=== PATIENT | female | born 1990 | race Caucasian/White ===

== ENCOUNTER 2016-12-26 10:13 | Day surgery (SDC) | payer OTHER ==
[2016-12-26] MEDS ORDERED: Sodium Chloride 0.9% 10 ML Syringe FLUSH PRN (10:20)
[2016-12-26] MEDS ORDERED: Lactated Ringers 1,000 ML IV SCH (10:30)
[2016-12-26] MEDS ORDERED: HYDROmorphone 0.5 MG/0.5 ML Syringe IVPUSH ONE (10:30)
--- NOTE | 2016-12-26 10:34 | EDM.PDOC ---
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 Something went behind the horse and spooked the horse she got bucked off. She landed on her left leg. She has an open, left tib/fib fracture. She has no other injuries. She did not hit her head or hurt her neck. She has no chest pain or shortness of breath. She has no abdominal pain nausea or vomiting. She ate a breakfast bar early this morning. She has no medical problems. She came by [facility] and a trauma alert was called. She had an IV and she was given fentanyl 100mcg IV. 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 [No Known Home Meds] 12/26/16 [History] Social & Family History - Alcohol Use Days Per Week of Alcohol Use: 0 - Recreational Drug Use Recreational Drug Use: No - Living Situation & Occupation Living situation: Reports: Other, Single Review of Systems - Review of Systems Review Of Systems: See Below Constitutional: Reports: No Symptoms Eyes: Reports: No Symptoms Ears: Reports: No Symptoms Nose: Reports: No Symptoms Mouth/Throat: Reports: No Symptoms Respiratory: Reports: No Symptoms Cardiovascular: Reports: No Symptoms GI/Abdominal: Reports: No Symptoms Genitourinary: Reports: No Symptoms Musculoskeletal: Reports: Other (Left open tib/fib fracture) ED EXAM, TRAUMA (MAJOR/MULTI) - Physical Exam Exam: See Below Exam Limited By: No Limitations General Appearance: Alert, No Apparent Distress Head: Atraumatic, Normocephalic Ears: Normal External Exam Nose: Normal Inspection Neck: Non-Tender, Normal Alignment, Normal Inspection Cardiovascular: Regular Rate, Rhythm, No Edema, No Murmur Respiratory/Chest: No Respiratory Distress, Lungs Clear, Normal Breath Sounds GI/Abdominal: Soft, Non-Tender, No Organomegaly, No Mass Extremities: Other (Obvious open fracture of the left Tib/fib with angulation laterally. 3cm laceration over the fracture site with the tibia at the opening. Good sensation and pulses distally.) Neurologic: No Motor/Sensory Deficits, Alert, Oriented x 3 Course - Vital Signs Last Recorded V/S: Last Vital Signs Temp 97.2 F 12/26/16 10:20 Pulse 106 H 12/26/16 10:20 Resp 16 12/26/16 10:20 BP 111/74 12/26/16 10:20 Pulse Ox 100 12/26/16 10:20 - Orders/Labs/Meds Orders: Active Orders 24 hr Category Date Time Status Cardiac Monitoring [RC] . DIRECTED Care 12/26/16 10:20 Active Peripheral IV Care [RC] . DIRECTED Care 12/26/16 10:20 Active Lactated Ringers [Ringers, Lactated] 1,000 ml Med 12/26/16 10:30 Active IV ASDIRECTED Sodium Chloride 0.9% [Saline Flush] Med 12/26/16 10:20 Active 10 ml FLUSH ASDIRECTED PRN ceFAZolin [Ancef] 2 gm Med 12/26/16 10:36 Active Premix Bag 1 bag IV ONETIME Peripheral IV Insertion Adult [OM.PC] Stat Oth 12/26/16 10:20 Ordered Medication Orders Lactated Ringer's (Ringers, Lactated) 1,000 mls @ 125 mls/hr IV ASDIRECTED PRAMOD Last Admin: 12/26/16 10:28 Dose: 125 mls/hr Cefazolin Sodium/Dextrose 2 gm (/ Premix) 50 mls @ 100 mls/hr IV ONETIME ONE Stop: 12/26/16 11:05 Last Admin: 12/26/16 10:53 Dose: 100 mls/hr Sodium Chloride (Saline Flush) 10 ml FLUSH ASDIRECTED PRN PRN Reason: Keep Vein Open Last Admin: 12/26/16 10:28 Dose: 10 ml Labs: Laboratory Tests 12/26/16 12/26/16 12/26/16 Range/Units 10:20 10:20 10:20 WBC 9.84 (3.98-10.04) K/mm3 RBC 4.53 (3.98-5.22) M/mm3 Hgb 13.6 (11.2-15.7) gm/L Hct 40.1 (34.1-44.9) % MCV 88.5 (79.4-94.8) fl MCH 30.0 (25.6-32.2) pg MCHC 33.9 (32.2-35.5) g/dl RDW Std Deviation 41.8 (36.4-46.3) fL Plt Count 290 (182-369) K/mm3 MPV 10.5 (9.4-12.3) fl Neut % (Auto) 61.8 (34.0-71.1) % Lymph % (Auto) 26.1 (19.3-51.7) % [place] % (Auto) 7.9 (4.7-12.5) % Eos % (Auto) 3.2 (0.7-5.8) Baso % (Auto) 0.7 (0.1-1.2) % Neut # (Auto) 6.08 (1.56-6.13) K/mm3 Lymph # (Auto) 2.57 (1.18-3.74) K/mm3 [place] # (Auto) 0.78 H (0.24-0.36) K/mm3 Eos # (Auto) 0.31 (0.04-0.36) K/mm3 Baso # (Auto) 0.07 (0.01-0.08) K/mm3 Sodium 139 (136-145) mEq/L Potassium 3.0 L (3.5-5.1) mEq/L Chloride 106 (98-107) mEq/L Carbon Dioxide 18 L (21-32) mEq/L Anion Gap 18.0 H (5-15) BUN 9 (7-18) mg/dL Creatinine 1.0 (0.55-1.02) mg/dL Est Cr Clr Drug Dosing 68.61 mL/min Estimated GFR (MDRD) > 60 (>60) mL/min BUN/Creatinine Ratio 9.0 L (14-18) Glucose 120 H (74-106) mg/dL Calcium 8.8 (8.5-10.1) mg/dL Total Bilirubin 1.1 H (0.2-1.0) mg/dL AST 12 L (15-37) U/L ALT 16 (14-59) U/L Alkaline Phosphatase 62 (46-116) U/L Total Protein 7.5 (6.4-8.2) g/dl Albumin 4.0 (3.4-5.0) g/dl Globulin 3.5 gm/dL Albumin/Globulin Ratio 1.1 (1-2) Lipase 118 (73-393) U/L HCG, Qual Negative (NEGATIVE) Meds: Medications Generic Name Dose Route Start Last Admin Trade Name Freq PRN Reason Stop Dose Admin Lactated Ringer's 1,000 mls @ 125 mls/hr 12/26/16 10:30 12/26/16 10:28 Ringers, Lactated IV 125 mls/hr ASDIRECTED PRAMOD Administration Cefazolin Sodium/Dextrose 2 gm 50 mls @ 100 mls/hr 12/26/16 10:36 12/26/16 10 :53 / Premix IV 12/26/16 11:05 100 mls/hr ONETIME ONE Administration Sodium Chloride 10 ml 12/26/16 10:20 12/26/16 10:28 Saline Flush FLUSH 10 ml ASDIRECTED PRN Administration Keep Vein Open Discontinued Medications Generic Name Dose Route Start Last Admin Trade Name Freq PRN Reason Stop Dose Admin Hydromorphone HCl 0.5 mg 12/26/16 10:30 12/26/16 10:33 Dilaudid IVPUSH 12/26/16 10:31 0.5 mg ONETIME ONE Administration - Re-Assessments/Exams Free Text/Narrative Re-Assessment/Exam: 12/26/16 11:04 I ordered an IV of LR, x-ray and labs. The x-ray confirms the fracture. Her CBC looks good. Her K was low at 3 and her anion gap is elevated at 18. Her glucose is elevated at 120. Her HCG is negative. 12/26/16 11:07 I ordered some K through the IV. I called Dr Erazo and he will come see the patient and take her to the OR. Her tetanus is up to date and I ordered ancef 2 grams IV. 12/26/16 11:09 I did give her a dose of dilaudid 0.5mg IV for the pain. Departure - Departure Time of Disposition: 11:10 Disposition: Refer to Observation Condition: fair Clinical Impression: Animal-rider injured by fall from or being thrown from horse in noncollision accident, initial encounter Fall Qualifiers: Encounter type: initial encounter Qualified Code(s): W19.XXXA - Unspecified fall, initial encounter Tibia/fibula fracture, shaft Qualifiers: Encounter type: initial encounter Fracture type: open Open fracture type: open type I or II Laterality: left Qualified Code(s): S82.202B - Unspecified fracture of shaft of left tibia, initial encounter for open fracture type I or II; S82.402B - Unspecified fracture of shaft of left fibula, initial encounter for open fracture type I or II - Discharge Information Forms: ED Department Discharge - My Orders Last 24 Hours: My Active Orders 12/26/16 10:20 Cardiac Monitoring [RC] . DIRECTED Peripheral IV Care [RC] . DIRECTED Sodium Chloride 0.9% [Saline Flush] 10 ml FLUSH ASDIRECTED PRN Peripheral IV Insertion Adult [OM.PC] Stat 12/26/16 10:30 Lactated Ringers [Ringers, Lactated] 1,000 ml IV ASDIRECTED 12/26/16 10:36 ceFAZolin [Ancef] 2 gm Premix Bag 1 bag IV ONETIME - Assessment/Plan Last 24 Hours: My Active Orders 12/26/16 10:20 Cardiac Monitoring [RC] . DIRECTED Peripheral IV Care [RC] . DIRECTED Sodium Chloride 0.9% [Saline Flush] 10 ml FLUSH ASDIRECTED PRN Peripheral IV Insertion Adult [OM.PC] Stat 12/26/16 10:30 Lactated Ringers [Ringers, Lactated] 1,000 ml IV ASDIRECTED 12/26/16 10:36 ceFAZolin [Ancef] 2 gm Premix Bag 1 bag IV ONETIME
[2016-12-26] MEDS ORDERED: ceFAZolin 2 GM in Premix Bag 1 BAG IV ONE (10:36)
--- NOTE | 2016-12-26 10:43 | CR ---
Left tibia and fibula: AP and lateral views of the left tibia and fibula were obtained. Displaced and angulated fractures noted near the junction of the mid and distal one third diaphysis of the tibia and fibula. Soft tissue injury is seen. Soft tissue swelling also noted. No proximal abnormality is seen. Impression: 1. Displaced and angulated fractures within the mid to distal tibia/fibula. 2. Soft tissue injury/swelling. Diagnostic code #5
[2016-12-26] MEDS: Potassium Chloride 10 MEQ in Premix Bag 1 BAG IV SCH ×2 (11:30→20:27)
[2016-12-26] MEDS ORDERED: Propofol 200 MG/20 ML SDV ONE (11:43)
[2016-12-26] MEDS ORDERED: Midazolam 1 MG/ML 2 ML SDV ONE (11:43)
[2016-12-26] MEDS ORDERED: fentaNYL 250 MCG/5 ML SDV ONE (11:43)
[2016-12-26] MEDS ORDERED: Lidocaine 1% 4 ML ONE (11:44)
--- NOTE | 2016-12-26 11:44 | PCM.PREANE ---
Preanesthetic Assessment - Anesthesia/Transfusion/Family Hx Anesthesia History: Prior Anesthesia Without Reaction Family History of Anesthesia Reaction: No Transfusion History: No Prior Transfusion(s) Intubation History: Unknown - Review of Systems General: Other (recovering from a cold ) Pulmonary: No Symptoms Cardiovascular: No Symptoms Gastrointestinal: No symptoms Neurological: Headache (received chiropractic treatments to treat PEÑALOZA's ) Other: Reports: None - Physical Assessment NPO Status Date: 12/26/16 NPO Status Time: 07:40 O2 Sat by Pulse Oximetry: 100 Respiratory Rate: 16 Vital Signs: Last Vital Signs Temp 36.2 C 12/26/16 10:20 Pulse 97 12/26/16 11:32 Resp 16 12/26/16 11:32 BP 114/72 12/26/16 11:32 Pulse Ox 100 12/26/16 11:32 Height: 1.57 m Weight: 65.771 kg ASA Class: 1E Mental Status: Alert & Oriented x3 Airway Class: Mallampati = 1 Dentition: Reports: Normal Dentition Thyro-Mental Finger Breadths: 3 Mouth Opening Finger Breadths: 5 ROM/Head Extension: Full Lungs: Clear to auscultation, Normal respiratory effort Cardiovascular: Regular Rate, Regular Rhythm, No Murmurs - Lab Values: Laboratory Last Values WBC 9.84 K/mm3 (3.98-10.04) 12/26/16 10:20 RBC 4.53 M/mm3 (3.98-5.22) 12/26/16 10:20 Hgb 13.6 gm/L (11.2-15.7) 12/26/16 10:20 Hct 40.1 % (34.1-44.9) 12/26/16 10:20 MCV 88.5 fl (79.4-94.8) 12/26/16 10:20 MCH 30.0 pg (25.6-32.2) 12/26/16 10:20 MCHC 33.9 g/dl (32.2-35.5) 12/26/16 10:20 RDW Std Deviation 41.8 fL (36.4-46.3) 12/26/16 10:20 Plt Count 290 K/mm3 (182-369) 12/26/16 10:20 MPV 10.5 fl (9.4-12.3) 12/26/16 10:20 Neut % (Auto) 61.8 % (34.0-71.1) 12/26/16 10:20 Lymph % (Auto) 26.1 % (19.3-51.7) 12/26/16 10:20 [place] % (Auto) 7.9 % (4.7-12.5) 12/26/16 10:20 Eos % (Auto) 3.2 (0.7-5.8) 12/26/16 10:20 Baso % (Auto) 0.7 % (0.1-1.2) 12/26/16 10:20 Neut # (Auto) 6.08 K/mm3 (1.56-6.13) 12/26/16 10:20 Lymph # (Auto) 2.57 K/mm3 (1.18-3.74) 12/26/16 10:20 [place] # (Auto) 0.78 K/mm3 (0.24-0.36) H 12/26/16 10:20 Eos # (Auto) 0.31 K/mm3 (0.04-0.36) 12/26/16 10:20 Baso # (Auto) 0.07 K/mm3 (0.01-0.08) 12/26/16 10:20 Sodium 139 mEq/L (136-145) 12/26/16 10:20 Potassium 3.0 mEq/L (3.5-5.1) L 12/26/16 10:20 Chloride 106 mEq/L (98-107) 12/26/16 10:20 Carbon Dioxide 18 mEq/L (21-32) L 12/26/16 10:20 Anion Gap 18.0 (5-15) H 12/26/16 10:20 BUN 9 mg/dL (7-18) 12/26/16 10:20 Creatinine 1.0 mg/dL (0.55-1.02) 12/26/16 10:20 Est Cr Clr Drug Dosing 68.61 mL/min 12/26/16 10:20 Estimated GFR (MDRD) > 60 mL/min (>60) 12/26/16 10:20 BUN/Creatinine Ratio 9.0 (14-18) L 12/26/16 10:20 Glucose 120 mg/dL (74-106) H 12/26/16 10:20 Calcium 8.8 mg/dL (8.5-10.1) 12/26/16 10:20 Total Bilirubin 1.1 mg/dL (0.2-1.0) H 12/26/16 10:20 AST 12 U/L (15-37) L 12/26/16 10:20 ALT 16 U/L (14-59) 12/26/16 10:20 Alkaline Phosphatase 62 U/L (46-116) 12/26/16 10:20 Total Protein 7.5 g/dl (6.4-8.2) 12/26/16 10:20 Albumin 4.0 g/dl (3.4-5.0) 12/26/16 10:20 Globulin 3.5 gm/dL 12/26/16 10:20 Albumin/Globulin Ratio 1.1 (1-2) 12/26/16 10:20 Lipase 118 U/L (73-393) 12/26/16 10:20 HCG, Qual Negative (NEGATIVE) 12/26/16 10:20 - Allergies Allergies/Adverse Reactions: Allergies Allergy/AdvReac Type Severity Reaction Status Date / Time amoxicillin [Amoxicillin] Allergy Cannot Verified 12/26/16 10:39 Remember - Blood Blood Available: No - Acknowledgements Anesthesia Type Planned: General Anesthesia Pt an Appropriate Candidate for the Planned Anesthesia: Yes Alternatives and Risks of Anesthesia Discussed w Pt/Guardian: Yes Pt/Guardian Understands and Agrees with Anesthesia Plan: Yes PreAnesthesia Questionnaire HEENT History: Reports: None Cardiovascular History: Reports: None Respiratory History: Reports: None Gastrointestinal History: Reports: None Genitourinary History: Reports: None 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 Musculoskeletal History: Reports: None Neurological History: Reports: None Psychiatric History: Reports: None Endocrine/Metabolic History: Reports: None Hematologic History: Reports: None Immunologic History: Reports: None Oncologic (Cancer) History: Reports: None Dermatologic History: Reports: None - Infectious Disease History Infectious Disease History: Reports: None - Past Surgical History GI Surgical History: Reports: Appendectomy - SUBSTANCE USE Smoking Status *Q: Never Smoker Second Hand Smoke Exposure: No Days Per Week of Alcohol Use: 0 Recreational Drug Use History: No - HOME MEDS Home Medications: Home Meds . [No Known Home Meds] 12/26/16 [History] - CURRENT (IN HOUSE) MEDS Current Meds: Current Medications Lactated Ringer's (Ringers, Lactated) 1,000 mls @ 125 mls/hr IV ASDIRECTED PRAMOD Last Admin: 12/26/16 10:28 Dose: 125 mls/hr Potassium Chloride 10 meq/ (Premix) 100 mls @ 100 mls/hr IV Q1H PRAMOD Stop: 12/26/16 15:14 Last Admin: 12/26/16 11:30 Dose: 100 mls/hr Sodium Chloride (Saline Flush) 10 ml FLUSH ASDIRECTED PRN PRN Reason: Keep Vein Open Last Admin: 12/26/16 10:28 Dose: 10 ml Discontinued Medications Fentanyl (Sublimaze) Confirm Administered Dose 250 mcg .ROUTE .STK-MED ONE Stop: 12/26/16 11:44 Hydromorphone HCl (Dilaudid) 0.5 mg IVPUSH ONETIME ONE Stop: 12/26/16 10:31 Last Admin: 12/26/16 10:33 Dose: 0.5 mg Cefazolin Sodium/Dextrose 2 gm (/ Premix) 50 mls @ 100 mls/hr IV ONETIME ONE Stop: 12/26/16 11:05 Last Admin: 12/26/16 10:53 Dose: 100 mls/hr Lidocaine HCl (Xylocaine-Mpf 1%) Confirm Administered Dose 4 mls @ as directed .ROUTE .STK-MED ONE Stop: 12/26/16 11:45 Midazolam HCl (Versed 1 Mg/Ml) Confirm Administered Dose 2 mg .ROUTE .STK-MED ONE Stop: 12/26/16 11:44 Propofol (Diprivan 20 Ml) Confirm Administered Dose 400 mg .ROUTE .STK-MED ONE Stop: 12/26/16 11:44
[2016-12-26] MEDS ORDERED: fentaNYL 100 MCG/2 ML SDV IVPUSH PRN (11:54)
[2016-12-26] MEDS ORDERED: Ondansetron 4 MG/2 ML SDV IVPUSH PRN ×2 (11:54→13:16)
[2016-12-26] MEDS ORDERED: diphenhydrAMINE 50 MG/ML SDV IVPUSH PRN (11:54)
[2016-12-26] MEDS ORDERED: HYDROmorphone 1 MG/ML Syringe IVPUSH ONE ×2 (12:40→12:54)
[2016-12-26] MEDS ORDERED: HYDROmorphone 1 MG/ML Syringe ONE ×2 (12:44→14:56)
[2016-12-26] MEDS ORDERED: cefTRIAXone 1 GM in Sodium Chloride 0.9% 100 ML IV ONE (13:16)
[2016-12-26] MEDS ORDERED: Cyclobenzaprine 10 MG Tab PO PRN (13:16)
[2016-12-26] MEDS ORDERED: HYDROmorphone 0.5 MG/0.5 ML Syringe IVPUSH PRN ×3 (13:16→16:29)
[2016-12-26] MEDS ORDERED: Ketorolac 30 MG/ML SDV IVPUSH PRN (13:16)
[2016-12-26] MEDS ORDERED: Morphine 15 MG Tab.ER PO SCH (13:30)
[2016-12-26] MEDS ORDERED: Rocuronium 50 MG/5 ML Vial ONE (13:33)
[2016-12-26] MEDS ORDERED: Meperidine PF 50 MG/ML Syringe IVPUSH PRN (13:55)
--- NOTE | 2016-12-26 14:11 | HP ---
DATE OF ADMISSION: 12/26/2016 HISTORY OF PRESENT ILLNESS: This is the first orthopedic admission outpatient for this 26-year-old female, who is being admitted from the emergency room with an open fracture of the distal left tibia-fibula. The patient suffered this injury secondary to being bucked off a horse around 9 a.m. this morning. She presented to the emergency room, evaluated and after x-ray evaluation of the open fracture, the patient is now being scheduled for surgical procedure. Procedure has been outlined to her. She understands procedure itself and the risk involved with this, especially with an open fracture, has a risk of infection. Understands that and has consented to the surgery. PAST MEDICAL HISTORY: ALLERGIES: Amoxicillin which she states she has rash and hives. MEDICAL: The patient has been healthy with no acute medical problems noted. CURRENT MEDICATIONS: Currently on no medications at time of admission. PAST SURGICAL HISTORY: Positive. She has had previous surgery with no anesthesia complications. SOCIAL HISTORY: The patient is a nonsmoker and nondrinker. She notes no history of bleeding or no history of blood clot formation. PHYSICAL EXAMINATION: GENERAL: Reveals a well-developed, well-nourished 26-year-old female, in severe distress. HEAD, EYES, EARS, NOSE, and THROAT: Normocephalic. NECK: Supple. CHEST: Clear. COR: Regular rate. ABDOMEN: Soft. : Intact. MUSCULOSKELETAL: Examination of the left lower extremity reveals a positive capillary refill to the tips of the toes. There is an open fracture laceration to the anterior distal 3rd of left tibia with bone being present and visualized. The patient had significant bleeding from the area. The rest of the lower extremities is intact. X-RAYS: Reveal a displaced distal 3rd fracture of the left tibia-fibula open. PLAN: The patient to undergo surgical intramedullary jesus fixation and irrigation debridement of the wound. They understand the procedure and has consented to the procedure itself. [facility] /[id number]
[2016-12-26] MEDS ORDERED: Phenylephrine/Normal Saline 100 MCG/ML 10 ML Syringe ONE (14:15)
[2016-12-26] MEDS ORDERED: Lactated Ringers 1,000 ML ONE ×3 (14:31→16:27)
[2016-12-26] MEDS ORDERED: ePHEDrine/Normal Saline 25 MG/5 ML Syringe ONE (14:31)
[2016-12-26] MEDS ORDERED: Dexamethasone 4 MG/ML 5 ML MDV ONE (14:40)
[2016-12-26] MEDS ORDERED: Ketorolac 30 MG/ML SDV ONE (14:40)
[2016-12-26] MEDS: Bupivacaine 0.5%/EPINEPHrine 1:200,000 50 ML MDV ONE ×2 (14:51→16:14)
[2016-12-26] MEDS ORDERED: Ketamine 500 mg/10 ML MDV ONE (14:52)
[2016-12-26] MEDS: Iodine/Sodium Iodide 2% Tincture 30 ML Bottle ONE ×2 (14:52→15:45)
--- NOTE | 2016-12-26 16:40 | CR ---
Left ankle: Two fluoroscopic spot views were obtained of the left ankle/tibia and fibula Study obtained utilizing C-arm device. Comparison: Previous left tibia and fibula study performed earlier on same day (10:19 AM). Reduction of previous tibia and fibular fractures is noted. Final film shows intramedullary jesus within the tibial fracture. No additional abnormality is seen. Impression: 1. Reduction of previous angulated fractures. 2. Intramedullary jesus placement within the tibial fracture. Diagnostic code #2
[2016-12-26] MEDS ORDERED: Midazolam 1 MG/ML 2 ML SDV IVPUSH PRN (17:00)
--- NOTE | 2016-12-26 17:08 | PCM.POSTAN ---
POST ANESTHESIA ASSESSMENT - MENTAL STATUS Mental Status: alert, oriented - VITAL SIGNS Pulse Rate: 126 SaO2: 99 Resp Rate: 12 Blood Pressure: 130/64 Temperature: 36.0 C
[2016-12-26] MEDS: Acetaminophen/oxyCODONE 325-5 MG Tab PO PRN (21:44)
[2016-12-27] MEDS: Acetaminophen/oxyCODONE 325-5 MG Tab PO PRN ×2 (06:13→10:26)
[2016-12-27 07:35] VITALS: BP 113/52
--- NOTE | 2016-12-27 08:08 | CONS ---
CONSULTING PHYSICIAN: Leandro Erazo MD DATE OF CONSULTATION: 12/26/2016 HISTORY OF PRESENT ILLNESS: Orthopedic consultation called for, for evaluation of a left lower extremity injury by the emergency room physician. The patient was riding a horse around 09:00 a.m. this morning when she suffered a fall secondary to being bucked off. She notes the only injury was to her left lower extremity. She did not strike her head or lose consciousness. She noted no other injuries to the neck or back or lower back area. The patient presented to the emergency room, underwent x- rays, found to have a fracture of the distal left tibia-fibula distal third with bone protrusion through the skin and open injury. After the identification of the open injury, she stopped being evaluated and scheduled for surgical intervention. PHYSICAL EXAMINATION: GENERAL: Today, reveals a well-developed, well-nourished 26-year-old female, in moderate distress. EXTREMITIES: Evaluation of the left lower extremity reveals an open fracture of the distal third of the tibia with a small amount of bone protrusion through the skin. There was significant bleeding about the fracture area. The patient has positive dorsiflexion, plantar flexion of the foot. LABORATORY DATA: The x-rays are reviewed shows a displaced fracture of the distal third left tibia fibula. PLAN: Plan will be for the patient to be scheduled for outpatient surgery for an intramedullary jesus fixation of distal left tibia-fibula. MMAMANDA /[id number]
--- NOTE | 2016-12-27 08:09 | OR ---
DATE OF OPERATION: 12/26/2016 SURGEON: Leandro Erazo MD PREOPERATIVE DIAGNOSIS: Open displaced fracture, distal left tibia and fibula. POSTOPERATIVE DIAGNOSIS: Open displaced fracture, distal left tibia and fibula. ANESTHESIA: General. OPERATION PERFORMED: 1. Open reduction and internal fixation, left tibia with intramedullary jesus. 2. Closed reduction, left fibula. 3. Irrigation, debridement, and closure of the open fracture site wound medial aspect left tibia. ESTIMATED BLOOD LOSS: 100 mL. DESCRIPTION OF PROCEDURE: The patient was taken to the operative room in supine position, placed under a general anesthesia, and then transferred to the fracture table in the supine position. Once on the fracture table, the fracture table was then set up for a reduction of the distal tibia fracture by standard technique and after the patient was positioned with left tibia in a mild traction unit to stabilize the fracture and prevent any further soft tissue injury, the operation proceeded with prepping and draping of the lower leg by standard technique for approach to both the knee and also the distal tibia for surgical repair and irrigation of the open fracture laceration. Once the prepping and draping was completed, the operation proceeded with initial x-rays to evaluate the reduction, which was quite adequate, and then the operation proceeded with an incision being placed over the anterior medial side of patella tendon with a slight hockey stick around the side of the patella penetrating through the skin and the subcutaneous tissues, these were dissected off the proximal tibia, tibial plateau just behind the patellar tendon, and then in the central portion of the tibia, the angulated awl was then guided into the surface of the tibial plateau and positioned in a distal fashion in the central portion of the tibia. Once that was in place, a guide jesus was then inserted through the angulated awl and a guidewire was then inserted down into the mid tibia area, and then across the fracture site with the fractured tibia reduced into the distal tibia. With the guidewire in place, all was removed and the operation proceeded with reaming of the tibial canal to 10-mm for insertion of a 9-mm jesus. Once that was completed, the 9-mm jesus was then inserted and the crossing the fracture site into the distal tibia. It was opted to dynamic compress the fracture, so 2 screws were then placed into the distal tibial jesus, and then by retrograde impaction, the fracture site was then closed on the jesus, and then 1 proximal screw was inserted. With the fracture very adequately reduced, the operation then proceeded with irrigation of all the wounds. The x-rays were taken and this was all done under guided fluoroscopy. The operation then proceeded with closure of the interval along the medial aspect of the patella with #1 Vicryl, subcutaneous tissue closed with 2-0 Vicryl, and skin with skin mateo. The proximal screw hole was then closed with 2 skin mateo after thorough irrigation. Operation then proceeded with final irrigation of the open laceration site, which was approximately 6 cm in length, and then to the 2 screw holes that were introduced from the lateral side. The 2 screw holes were thoroughly irrigated. The skin was closed with skin mateo, and then the operation proceeded with final irrigation of the open fracture site. The subcutaneous tissues were closed with 2-0 Vicryl, and skin with 2 Prolene mattress sutures. Once the skin was closed, the operation proceeded with application of standard soft dressings, Cabello-type dressing, and then a short leg splint was applied to hold the ankle neutral, and then the Rikki wraps along with a left knee immobilizer. The patient tolerated this whole procedure well and left the operating room in stable condition to room for recovery. [facility] /[id number]
[2016-12-27] MEDS ORDERED: cefTRIAXone 1 GM in Sodium Chloride 0.9% 100 ML IV ONE (08:32)
--- NOTE | 2017-01-03 07:59 | OR ---
DATE OF OPERATION: 12/26/2016 SURGEON: Leandro Erazo MD ADDENDUM: DESCRIPTION OF PROCEDURE: Closed reduction of left fibula. The left fibula was reduced as the surgery was carried out with the intramedullary jesus of the left tibia. This was carried out by traction unit being used to stabilize the left tibia. At the same time, the left fibula was manipulated into a reduced position. MMODAL /[id number]
== END 2016-12-27 13:30 | disposition home or self-care (01) ==
LOC: JD.ED 10:13 → JD.SDS 11:53
PROVIDERS: ATTEND Specialist
DX: S82.302B Unspecified fracture of lower end of left tibia, initial encounter for open fracture type I or II (principal); S82.832B Other fracture of upper and lower end of left fibula, initial encounter for open fracture type I or II
CPT/HCPCS: 11012; 27788; 27827; 36415; 73590; 76000; 80053; 83690; 84703; 85025; 96365; 96375; 97116; 97161; 99285; A9270; J0690; J0696; J1100; J1170; J2250; J3010; J3480; J7030; J7050; J7120; 01462; 99284; C1713; C1776; J1885; J2704